=== PATIENT | female | born 1975 | race Caucasian/White ===

== ENCOUNTER 2022-06-01 06:32 | Day surgery (SDC) | payer BC ==
[~2022-06-01] VITALS: Ht 167.6 cm; Wt 81.4 kg
[2022-06-01] MEDS ORDERED: LIPITOR20 MG PO (07:02)
[2022-06-01] MEDS ORDERED: ZOLOFT 100MG100 MG PO (07:03)
[2022-06-01] MEDS ORDERED: TOPROL XL 50MG50 MG PO (07:03)
[2022-06-01 08:18] VITALS: BP 97/62; PULSE 74; TEMP 97.7
--- NOTE | 2022-06-01 08:18 | NUR ---
PATIENT AMBULATED TO CHAIR WITH STANDBY ASSISTANCE, GAIT STEADY. PATIENT ALERT AND ORIENTED, DENIES PAIN AND NAUSEA. NURSE HANDOFF COMPLETED IN ROOM. SEE CHART FOR VITAL SIGNS. BREATHING REGULAR AND UNLABORED. PATIENT HAD APPLE JUICE AND A MUFFIN, BOTH TOLERATED WELL. MET WITH PATIENT TO DISCUSS PROCEDURE. CALL LIGHT IN REACH.
[2022-06-01 08:30] VITALS: BP 115/79; PULSE 79
[2022-06-01 08:45] VITALS: BP 121/82; PULSE 74
--- NOTE | 2022-06-01 08:45 | NUR ---
PATIENT DENIES PAIN AND NAUSEA, FOOD AND DRINK TOLERATED WELL. DISCHARGE TEACHING COMPLETED WITH PRINTED EDUCATION AND INSTRUCTIONS SENT HOME WITH PATIENT. PATIENT VERBALIZED UNDERSTANDING OF TEACHING. IV REMOVED. PATIENT CHANGED INTO PERSONAL CLOTHING AND DISCHARGED HOME.
[2022-06-01 16:11] VITALS: BP 133/80; PULSE 83; TEMP 97
== END 2022-06-01 09:02 | disposition home or self-care (01) ==
LOC: SDCO 06:32
DX: Z12.11 Encounter for screening for malignant neoplasm of colon (principal); D12.8 Benign neoplasm of rectum; K63.5 Polyp of colon; D12.3 Benign neoplasm of transverse colon; I10 Essential (primary) hypertension; F17.210 Nicotine dependence, cigarettes, uncomplicated
CPT/HCPCS: J2704; J7120